=== PATIENT | female | born 1995 | race Caucasian/White ===

== ENCOUNTER 2020-11-20 18:49 | Emergency (ER) | payer SELFPAY ==
[~2020-11-20] VITALS: Ht 167.6 cm; Wt 77.1 kg
[2020-11-20] MEDS ORDERED: ONDANSETRON HCL INJ 2MG/ML 2ML 2 MG/ML VIAL IV STA (19:39)
[2020-11-20] MEDS ORDERED: SODIUM CHLORIDE 0.9% 1000ML 1,000 ML IV SCH (19:45)
[2020-11-20] MEDS ORDERED: SODIUM CHLORIDE 0.9% 50ML 50 ML ONE (20:09)
[2020-11-20] MEDS ORDERED: IOPAMIDOL 370 MG/ML 200 ML INFUS..BTL INJ ONE (20:09)
[2020-11-20] MEDS ORDERED: SODIUM CHLORIDE 0.9% 1000ML 1,000 ML ONE (20:23)
[2020-11-20] MEDS ORDERED: ONDANSETRON HCL INJ 2MG/ML 2ML 2 MG/ML VIAL ONE (20:23)
[2020-11-20] MEDS ORDERED: ACETAMINOPHEN 325 MG TAB ONE (20:24)
[2020-11-20] MEDS ORDERED: DICYCLOMINE HCL 10 MG CAP ONE (22:03)
[2020-11-20] MEDS ORDERED: KETOROLAC TROMETHAMINE 30 MG/ML VIAL ONE (22:03)
[2020-11-20] MEDS ORDERED: ONDANSETRON ODT4 MG PO (22:22)
[2020-11-20] MEDS ORDERED: DICYCLOMINE HCL10 MG PO (22:23)
== END 2020-11-20 22:40 | disposition home or self-care (01) ==
LOC: FSED 19:35
DX: K52.9 Noninfective gastroenteritis and colitis, unspecified (principal)
CPT/HCPCS: 74177; 99284; J1885; J2405; J7030; Q9967